=== PATIENT | female | born 1945 | race Caucasian/White ===

== ENCOUNTER 2016-07-06 06:49 | Day surgery (SDC) | payer MEDICARE ==
[2016-06-28 12:04] VITALS: BMI 44.9
[2016-07-06] MEDS ORDERED: SODIUM CHLORIDE 0.9% 1,000 ML IV SCH ×2 (07:14→08:00)
[2016-07-06] MEDS ORDERED: LACTATED RINGERS 1,000 ML IV SCH (07:14)
[2016-07-06] MEDS ORDERED: SODIUM CHLORIDE 0.9% 1,000 ML IV ONE (07:15)
[2016-07-06] MEDS ORDERED: IV FLUID CONTINUATION 1,000 ML IV ONE (07:25)
[2016-07-06] MEDS ORDERED: LIDOCAINE 1% INJ 10MG/ML (20 ML MDV) ONE (07:26)
[2016-07-06] MEDS ORDERED: PROPOFOL 10 MG/ML 20 ML VIAL IV ONE (07:26)
[2016-07-06] MEDS ORDERED: GLYCOPYRROLATE 0.2 MG/ML 2 ML VIAL ONE (07:26)
[2016-07-06 07:43] LABS: Anion Gap 11 mmol/L; Blood Urea Nitrogen 13 mg/dL (7-17); Calcium 9.5 mg/dL (8.4-10.2); Carbon Dioxide 27 mmol/L (22-30); Chloride 109 mmol/L (98-107); Glucose 88 mg/dL (74-99); INR 1.5 (<1.1); Non-African American GFR(MDRD) 51 (>60 ml/min/1.73 sqM); Potassium 3.9 mmol/L (3.5-5.1); Prothrombin Time 14.9 sec (9.0-12.0); Sodium 147 mmol/L (137-145)
[2016-07-06] MEDS ORDERED: ACETAMINOPHEN TAB 500 MG TAB PO PRN (07:54)
[2016-07-06 07:58] VITALS: TEMP 97.6
[2016-07-06 08:37] VITALS: RESP 16
[2016-07-06] MEDS ORDERED: ATORVASTATIN 80 MG TAB PO SCH (09:00)
[2016-07-06] MEDS ORDERED: POTASSIUM CHLORIDE ER 20 MEQ TAB.ER PO SCH (09:00)
[2016-07-06] MEDS ORDERED: NON-FORMULARY DRUG (Ranitidine Hcl [Zantac] 300 MG) PO SCH (09:00)
[2016-07-06] MEDS ORDERED: azaTHIOprine 50 MG TAB PO SCH (09:00)
[2016-07-06] MEDS ORDERED: FUROSEMIDE 40 MG TAB PO SCH (09:00)
[2016-07-06] MEDS ORDERED: METOPROLOL TARTRATE 50 MG TAB PO SCH (09:00)
[2016-07-06] MEDS ORDERED: AMIODARONE 200 MG TAB PO STA (09:14)
[2016-07-06 10:43] VITALS: BP 114/59; PULSE 86
--- NOTE | 2016-07-06 11:07 | ECHOT ---
DATE OF SERVICE: 07/06/2016 CLINICAL INFORMATION: Evaluation of left atrial appendage. PROCEDURE: After explaining the procedure to the patient as well as risks and complications, her blood pressure, heart rate, O2 saturation were monitored. The throat was sprayed with Cetacaine. She received sedation per anesthesia department. The probe was re-introduced in the esophagus without difficulty. Images were obtained. Following that, the probe was removed. FINDINGS: Biatrial enlargement was noted. The left atrial appendage is normal. Left ventricular size and systolic function are normal. The aortic valve, mitral valve and tricuspid valve are normal. Descending thoracic aorta appears to be normal. Contrast bubble study revealed no evidence of shunting across the interatrial septum with. No pericardial effusion was noted. DOPPLER: Pulse wave and color Doppler obtained and revealed mild mitral with moderate tricuspid regurgitation. There was no shunting across the interatrial septum. There was no evidence of significant pulmonary hypertension. CONCLUSION: 1. Biatrial enlargement with normal appearance of left atrial appendage. 2. Normal left ventricular size and systolic function. 3. Mild mitral with moderate tricuspid regurgitation. 4. No evidence of shunting across the interatrial septum. 5. Normal appearance of the descending thoracic aorta.
--- NOTE | 2016-07-06 15:34 | CE ---
DATE OF SERVICE: INDICATION: Atrial fibrillation. PROCEDURE: After explaining the procedure to the patient as well as risk and complications, blood pressure, heart rate and saturation were monitored. After receiving sedated state by the Anesthesia Department, transesophageal echocardiogram was performed. Following that, attempt cardioversion using 200 synchronized joules, 300 and 360 synchronized joules were unsuccessful in restoring normal sinus rhythm. There was no immediate complication.
[2016-07-06] MEDS ORDERED: AMIODARONE 200 MG TAB PO SCH (21:00)
[2016-07-06] MEDS ORDERED: WARFARIN 7.5 MG TAB PO SCH (21:00)
== END 2016-07-06 10:05 | disposition home or self-care (01) ==
LOC: CATHCVL 06:49
PROVIDERS: ATTEND Internal Medicine Interventional Cardiology
DX: I08.1 Rheumatic disorders of both mitral and tricuspid valves (principal); I10 Essential (primary) hypertension; E66.9 Obesity, unspecified; Z68.41 Body mass index [BMI] 40.0-44.9, adult; I48.1 Persistent atrial fibrillation; Z79.01 Long term (current) use of anticoagulants; Z79.899 Other long term (current) drug therapy; Z88.2 Allergy status to sulfonamides
CPT/HCPCS: 93312; 93320; 93325; 92960; 80048; 85610; J2001; J2704; 99152; 99153

== ENCOUNTER 2016-08-16 06:01 | Day surgery (SDC) | payer MEDICARE ==
[2016-08-13 15:26] VITALS: BMI 44.9
[~2016-08-16 06:01] MED LIST: LACTATED RINGERS 1,000 ML IV SCH; SODIUM CHLORIDE 0.9% 1,000 ML IV SCH
[2016-08-16 06:27] VITALS: TEMP 97.6
[2016-08-16] MEDS ORDERED: SODIUM CHLORIDE 0.9% 500 ML IV ONE (06:57)
[2016-08-16] MEDS ORDERED: LIDOCAINE 1% INJ 10MG/ML (20 ML MDV) ONE (07:07)
[2016-08-16] MEDS ORDERED: PROPOFOL 10 MG/ML 20 ML VIAL IV ONE (07:07)
[2016-08-16] MEDS ORDERED: ACETAMINOPHEN TAB 500 MG TAB PO PRN (07:20)
[2016-08-16] MEDS ORDERED: ROPIVACAINE 5 MG/ML 30 ML VIAL ONE (07:23)
[2016-08-16] MEDS ORDERED: LIDOCAINE 2%-EPI 1:100,000 20 ML VIAL ONE (07:23)
[2016-08-16] MEDS ORDERED: WARFARIN 7.5 MG TAB PO SCH (07:30)
[2016-08-16] MEDS ORDERED: SODIUM CHLORIDE 0.9% 1,000 ML IV SCH (07:30)
[2016-08-16 08:50] VITALS: BP 137/77; PULSE 78; RESP 20
[2016-08-16] MEDS ORDERED: POTASSIUM CHLORIDE ER 20 MEQ TAB.ER PO SCH (09:00)
[2016-08-16] MEDS ORDERED: NON-FORMULARY DRUG (Ranitidine Hcl [Zantac] 300 MG) PO SCH (09:00)
[2016-08-16] MEDS ORDERED: METOPROLOL TARTRATE 50 MG TAB PO SCH (09:00)
[2016-08-16] MEDS ORDERED: FUROSEMIDE 40 MG TAB PO SCH (09:00)
[2016-08-16] MEDS ORDERED: azaTHIOprine 50 MG TAB PO SCH (09:00)
--- NOTE | 2016-08-16 14:22 | CE ---
DATE OF SERVICE: PROCEDURE PERFORMED: Cardioversion INDICATION: Atrial fibrillation. PROCEDURE: After explaining the procedure to patient as well as risks and complications, her blood pressure, heart rate, O2 saturation were monitored. After obtaining sedation state per anesthesia department, synchronized biphasic 200 joules, 300 joules and 360 joules were performed with inability to restore normal sinus rhythm. There was no immediate complication.
[2016-08-17] MEDS ORDERED: WARFARIN 5 MG TAB PO SCH (07:20)
== END 2016-08-16 09:06 | disposition home or self-care (01) ==
LOC: CATHCVL 06:01
PROVIDERS: ATTEND Internal Medicine Interventional Cardiology
DX: I48.2 Chronic atrial fibrillation (principal); I10 Essential (primary) hypertension; E66.9 Obesity, unspecified; Z68.42 Body mass index [BMI] 45.0-49.9, adult; J45.909 Unspecified asthma, uncomplicated; Z88.2 Allergy status to sulfonamides; Z88.6 Allergy status to analgesic agent; Z79.01 Long term (current) use of anticoagulants; Z79.899 Other long term (current) drug therapy
CPT/HCPCS: 92960; 85610; J2001; J2795; J2704; 99152

== ENCOUNTER → 2016-09-24 | Outpatient (CLI) | payer MEDICARE ==
--- NOTE | 2016-09-24 16:33 | CT ---
EXAMINATION TYPE: CT abdomen w con DATE OF EXAM: 09/24/2016 4:11 PM COMPARISON: NONE HISTORY: Fall 17 days ago, left upper quadrant pain. CT DLP: 1395.00 mGycm CONTRAST: CT scan of the abdomen is performed with Oral Contrast and with IV Contrast, patient injected with 1 00 mL of Omnipaque 300. FINDINGS: LUNG BASES-: No visible nodule. No infiltrate. LIVER/GB: No calcified gallstones. No space occupying hepatic lesion. Biliary tree is of normal ca liber. PANCREAS: No inflammation. No distinct mass. SPLEEN: There is intraparenchymal splenic hematoma at its mid to lower pole which measures approximat mariah 8.2 cm in craniocaudal dimension by 7.3 cm in AP dimension. There is splenic laceration which is difficult to measure given the size of the hematoma. There is also subcapsular hematoma which measure s 5.9 x 2.7 cm. I do not see evidence for active hemorrhage. The splenic hilum is intact. Mild perisp lenic strandy attenuation. No hemoperitoneum identified within the imaged field of view. ADRENALS: No nodule. No thickening. KIDNEYS/BLADDER: No hydronephrosis. No nephrolithiasis. No disctinct renal mass. Urinary bladder g rossly unremarkable. BOWEL: Normal appendix. Normal bowel caliber. No inflammation. LYMPH NODES: No greater than 1cm abdominal or pelvic lymph nodes are appreciated. AORTA: No significant abnormality. OSSEOUS STRUCTURES: Severe degenerative change lumbar spine. Grade 1 anterolisthesis L4 and L5. OTHER: No significant additional abnormality is seen. IMPRESSION: 1. Grade 3 splenic laceration with intraparenchymal hematoma and laceration. Subcapsular hematoma not ed as well. No active hemorrhage identified within the [id number] at this time.
== END | disposition home or self-care (01) ==
LOC: RADCTMAIN 14:55
PROVIDERS: ATTEND Family Medicine
DX: S36.031A Moderate laceration of spleen, initial encounter (principal); D73.5 Infarction of spleen; T14.90 Injury, unspecified
CPT/HCPCS: 74160; Q9967

== ENCOUNTER 2021-04-06 17:25 | Observation (INO) | payer MEDICARE ==
[2021-04-06 18:37] LABS: Anisocytosis Slight; Basophils % (A) 0 %; Eosinophils # (A) 0.1 k/uL (0-0.7); Eosinophils % (A) 2 %; HGB 11.8 gm/dL (11.4-16.0); Lymphocytes % (A) 16 %; MCH 37.9 pg (25.0-35.0); MCV 118.6 fL (80.0-100.0); Macrocytosis Marked; Mean Platelet Volume 8.3; Monocytes # (A) 0.3 k/uL (0-1.0); Monocytes % (A) 5 %; Neutrophils % (A) 75 %; Platelet Count 187 k/uL (150-450); RBC 3.12 m/uL (3.80-5.40); WBC 6.6 k/uL (3.8-10.6)
[2021-04-06 18:49] LABS: Partial Thromboplastin Time 49.5 sec (22.0-30.0); Prothrombin Time 75.8 sec (9.0-12.0)
[2021-04-06 18:53] LABS: INR 7.8 (<1.2)
[2021-04-06 18:54] LABS: Albumin 2.9 g/dL (3.5-5.0); Calcium 8.9 mg/dL (8.4-10.2); Potassium 3.8 mmol/L (3.5-5.1); Total Bilirubin 2.7 mg/dL (0.2-1.3); Total Protein 7.7 g/dL (6.3-8.2)
--- NOTE | 2021-04-06 19:05 | ED ---
Recheck HPI - General Chief Complaint: Recheck/Abnormal Lab/Rx Stated Complaint: Abd labs Time Seen by Provider: 04/06/21 17:44 Source: patient Mode of arrival: ambulatory Limitations: no limitations - History of Present Illness Initial Comments: Vanessa is a 76-year-old female who presents to our hospital as a transfer from an outside hospital for evaluation of elevated INR. Patient has a history of autoimmune hepatitis. She is on Coumadin for atrial fibrillation. Patient's INR was elevated she was seen at outside hospital their lab was able to ca nnulate the INR was greater than 9. She was given with 2 doses of vitamin K and transferred here for further evaluation. Patient is not having any active bleeding. She does have some bleeding with bowel movements from hemorrhoids. She also has bleeding with brushing her teeth from gum disease. She does bruise easily. She is not having chest pain palpitations or lightheadedness. - Related Data Home Medications Medication Instructions Recorded Confirmed Furosemide [Lasix] 60 mg PO DAILY 12/14/13 04/06/21 Metoprolol Tartrate [Lopressor] 50 mg PO BID 12/14/13 04/06/21 Potassium Chloride [Klor-Con 20] 20 meq PO BID 12/14/13 04/06/21 azaTHIOprine [Imuran] 50 mg PO DAILY 12/14/13 04/06/21 Acetaminophen Tab [Tylenol] 1,000 mg PO BID 12/15/13 04/06/21 Warfarin [Coumadin] 5 mg PO SUTUWETHFRSA 08/13/16 04/06/21 Azithromycin [Zithromax Z-pack (6 See Taper PO DIRECTED 04/06/21 04/06/21 tabs)] Famotidine 20 mg PO DAILY 04/06/21 04/06/21 Warfarin [Coumadin] 7.5 mg PO MO 04/06/21 04/06/21 diphenhydrAMINE [Benadryl] 50 mg PO HS PRN 04/06/21 04/06/21 predniSONE 10 mg PO DAILY 04/06/21 04/06/21 Allergies Allergy/AdvReac Type Severity Reaction Status Date / Time adhesive Allergy Rash/Hives Verified 04/06/21 19:16 sulfamethoxazole Allergy Rash/Hives Verified 04/06/21 19:16 [From ] trimethoprim [From ] Allergy Rash/Hives Verified 04/06/21 19:16 aspirin AdvReac "too many Verified 04/06/21 19:16 causes a stomach ache." Review of Systems ROS Statement: Those systems with pertinent positive or pertinent negative responses have been documented in the HPI. ROS Other: All systems not noted in ROS Statement are negative. Past Medical History Past Medical History: Atrial Fibrillation, Asthma, GERD/Reflux, Hypertension, Liver Disease, Osteoarthritis (OA), Rheumatoid Arthritis (RA), Skin Disorder Additional Past Medical History / Comment(s): autoimmune hepatitis, hx migraines, diarrhea, hx gout, skin sores, urinary leakage History of Any Multi-Drug Resistant Organisms: None Reported Past Surgical History: Joint Replacement, Orthopedic Surgery Additional Past Surgical History / Comment(s): ovaries removed, rt hand ring finger knucke replacement, D&C Past Anesthesia/Blood Transfusion Reactions: Previous Problems w/ Anesthesia, Motion Sickness Additional Past Anesthesia/Blood Transfusion Reaction / Comment(s): trouble catch breath after "they took tube out" after an EGD Past Psychological History: Depression Smoking Status: Former smoker Past Alcohol Use History: Occasional Past Drug Use History: None Reported - Past Family History Mother Family Medical History: Coronary Artery Disease (CAD), Dementia, Myocardial Infarction ([place]) Additional Family Medical History / Comment(s): emphysema Father Additional Family Medical History / Comment(s): Alheimer's Brother(s) Family Medical History: Coronary Artery Disease (CAD), Myocardial Infarction ([place]) General Exam - General Exam Comments Initial Comments: Physical Exam GENERAL: Patient is well-developed and well-nourished. Patient is nontoxic and well-hydrated and is in no distress. HENT: Normocephalic, Atraumatic. EYES: PERRL, EOMI PULMONARY: Unlabored respirations. CARDIOVASCULAR: Irregularly irregular Warm and well perfused extremities ABDOMEN: Non-distended SKIN: Bruising on extremities : Deferred NEUROLOGIC: Alert and oriented Normal speech Normal gait MUSCULOSKELETAL: Moving all extremities with no apparent injury PSYCHIATRIC: No SI/HI Limitations: no limitations Course Vital Signs 04/06/21 17:40 Temperature 97.8 F Pulse Rate 80 Respiratory 18 Rate Blood Pressure 126/86 O2 Sat by Pulse 98 Oximetry Medical Decision Making - Medical Decision Making The patient was seen and evaluated history is obtained from the patient, repeat labs were obtained INR 7.8 however patient has transaminitis and an acute kidney injury. Given the multiple lab abnormalities and concern the patient's body will not be able to properly metabolize warfarin, I'm concerned she may have a persistently elevated INR and should be monitored closely here in the hospital. Patient care was discussed with Dr. Alcaraz who accepts admission - Lab Data Result diagrams: 04/06/21 18:25 04/06/21 18:25 Lab Results 04/06/21 04/06/21 04/06/21 Range/Units 18:25 18:25 18:25 WBC 6.6 (3.8-10.6) k/uL RBC 3.12 L (3.80-5.40) m/uL Hgb 11.8 (11.4-16.0) gm/dL Hct 37.0 (34.0-46.0) % MCV 118.6 H (80.0-100.0) fL MCH 37.9 H (25.0-35.0) pg MCHC 32.0 (31.0-37.0) g/dL RDW 18.0 H (11.5-15.5) % Plt Count 187 (150-450) k/uL MPV 8.3 Neutrophils % 75 % Lymphocytes % 16 % Monocytes % 5 % Eosinophils % 2 % Basophils % 0 % Neutrophils # 5.0 (1.3-7.7) k/uL Lymphocytes # 1.0 (1.0-4.8) k/uL Monocytes # 0.3 (0-1.0) k/uL Eosinophils # 0.1 (0-0.7) k/uL Basophils # 0.0 (0-0.2) k/uL Anisocytosis Slight Macrocytosis Marked A PT 75.8 H (9.0-12.0) sec INR 7.8 H* (<1.2) APTT 49.5 H (22.0-30.0) sec Sodium 139 (137-145) mmol/L Potassium 3.8 (3.5-5.1) mmol/L Chloride 110 H (98-107) mmol/L Carbon Dioxide 19 L (22-30) mmol/L Anion Gap 10 mmol/L BUN 19 H (7-17) mg/dL Creatinine 1.29 H (0.52-1.04) mg/dL Est GFR (CKD-EPI)AfAm 47 (>60 ml/min/1.73 sqM) Est GFR (CKD-EPI)NonAf 41 (>60 ml/min/1.73 sqM) Glucose 117 H (74-99) mg/dL Calcium 8.9 (8.4-10.2) mg/dL Total Bilirubin 2.7 H (0.2-1.3) mg/dL AST 245 H (14-36) U/L ALT 84 H (4-34) U/L Alkaline Phosphatase 250 H (38-126) U/L Total Protein 7.7 (6.3-8.2) g/dL Albumin 2.9 L (3.5-5.0) g/dL Disposition Clinical Impression: Warfarin-induced coagulopathy, Autoimmune hepatitis, YAMILKA (acute kidney injury) Disposition: ADMITTED IP TO THIS HOSP Condition: Stable Is patient prescribed a controlled substance at d/c from ED?: No Referrals: Sammy Ulrich MD [Primary Care Provider] - 1-2 days
[2021-04-06] MEDS ORDERED: NALOXONE 0.4 MG/ML 1 ML VIAL IV PRN (19:30)
[2021-04-06] MEDS ORDERED: diphenhydrAMINE 25 MG CAP PO PRN (23:49)
[2021-04-07] MEDS: ACETAMINOPHEN TAB 500 MG TAB PO SCH ×2 (00:06→08:57)
[2021-04-07] MEDS: POTASSIUM CHLORIDE ER 20 MEQ TAB.ER PO SCH ×2 (00:20→08:56)
[2021-04-07] MEDS: METOPROLOL TARTRATE 50 MG TAB PO SCH ×2 (00:20→08:56)
[2021-04-07 03:49] VITALS: PULSE 101
[2021-04-07 06:42] LABS: Anisocytosis Slight; Basophils % (A) 0 %; Eosinophils % (A) 1 %; HCT 32.1 % (34.0-46.0); HGB 10.3 gm/dL (11.4-16.0); Lymphocytes # (A) 0.3 k/uL (1.0-4.8); Lymphocytes % (A) 7 %; MCH 38.5 pg (25.0-35.0); MCV 120.3 fL (80.0-100.0); Macrocytosis Marked; Mean Platelet Volume 8.2; Monocytes # (A) 0.1 k/uL (0-1.0); Monocytes % (A) 4 %; Neutrophils # (A) 3.2 k/uL (1.3-7.7); Neutrophils % (A) 87 %; Platelet Count 126 k/uL (150-450); RBC 2.67 m/uL (3.80-5.40); RDW 17.7 % (11.5-15.5); WBC 3.6 k/uL (3.8-10.6)
[2021-04-07 07:33] LABS: Prothrombin Time 60.1 sec (9.0-12.0)
[2021-04-07 07:39] LABS: INR 6.2 (<1.2)
[2021-04-07] MEDS ORDERED: FUROSEMIDE 40 MG TAB PO SCH (09:00)
[2021-04-07] MEDS ORDERED: predniSONE 10 MG TAB PO SCH (09:00)
[2021-04-07] MEDS ORDERED: azaTHIOprine 50 MG TAB PO SCH (09:00)
[2021-04-07] MEDS ORDERED: FAMOTIDINE 20 MG TAB PO SCH (09:00)
[2021-04-07 09:04] LABS: African American GFR (CKD) 39 (>60 ml/min/1.73 sqM); Blood Urea Nitrogen 23 mg/dL (7-17); Calcium 8.7 mg/dL (8.4-10.2); Carbon Dioxide 22 mmol/L (22-30); Chloride 111 mmol/L (98-107); Glucose 148 mg/dL (74-99); Non-African American GFR(CKD) 34 (>60 ml/min/1.73 sqM); Potassium 4.8 mmol/L (3.5-5.1)
[2021-04-07 10:00] LABS: Anion Gap 5 mmol/L; Sodium 138 mmol/L (137-145)
[2021-04-07 11:23] VITALS: BP 113/64; RESP 18; TEMP 98.1
[2021-04-07 12:48] LABS: Albumin 2.6 g/dL (3.5-5.0); Bilirubin, Delta 1.7 mg/dL (0.0-0.2); Bilirubin,Unconjugated 0.8 mg/dL (0.0-1.1); Total Bilirubin 2.5 mg/dL (0.2-1.3)
--- NOTE | 2021-04-07 14:10 | P.HPIM ---
History of Present Illness H&P Date: 04/07/21 (This document was of both his H&P and discharge summary) 76 years old female patient of Dr. Ulrich with past medical history of chronic persistent atrial fibrillation, asthma, GERD, autoimmune hepatitis, hypertension, rheumatoid arthritis, history of gout comes in as a transfer from outside hospital for elevated INR. Patient takes Coumadin for atrial fibrillation. Apparently patient has been taking her Coumadin twice a day and has not seen her provider for more than a year. Last INR check was 8 months ago and was normal. Patient denies any change in her diet. She denies any nausea, hematemesis or melena. Sh denies any bleeding episode. Patient does have bleeding with brushing her teeth from gum disease. She does bruise easily. She was given 2 doses of vitamin K and transferred for further evaluation. Patient did have fecal occult cards that was negative. Vitals were reviewed patient is afebrile pulse 80 respiratory rate 18 blood pressure 126/86. Labs were reviewed patient has a WBC of 6.6 hemoglobin 11.8 which improved dropped to 10.3 this morning. MCV 118, INR yesterday evening was 7.8 improved to 6.2 this morning. CO2 19 improved to 22, liver enzymes elevated with AST to 45 ALT 84 alkaline phosphatase 250. Albumin 2.6. Coumadin was discontinued and patient was given instructions to start on 04/10 after repeat INR. ROS Constitutional: Denies chills, Denies fever, Denies lethargy, Denies malaise, Denies poor appetite, Denies weakness, Denies weight loss Eyes: denies decreased vision, denies diplopia, denies discharge, denies pain Ears: deny: decreased hearing Ears, nose, mouth and throat: Denies dental pain, Denies headache, Denies nasal discharge, Denies nose pain Cardiovascular: Denies chest pain, Denies decreased exercise tolerance, Denies edema, Denies high blood pressure, Denies irregular heart beat, Denies palpitations, Denies paroxysmal nocturnal dyspnea, Denies rapid heart beat, Denies shortness of breath Respiratory: Denies congestion, Denies cough, Denies cough with sputum, Denies dyspnea, Denies home oxygen, Denies wheezing Gastrointestinal: Denies abdominal pain, Denies change in bowel habits, Denies coffee ground emesis, Denies early satiety, Denies excessive gas, Denies heartburn, Denies hematemesis, Denies hematochezia, Denies loss of appetite, Denies nausea, Denies vomiting Genitourinary: Denies dysuria, Denies flank pain, Denies kidney stones, Denies menorrhagia, Denies urgency, Denies urinary frequency Musculoskeletal: Denies gait dysfunction, Denies limitation of motion, Denies morning stiffness, Denies muscle cramps Integumentary: Denies rash, Denies wounds, Denies brittle nails, Denies change in hair/nails, Denies darkening of skin bleeds easily Neurological: Denies balance difficulties, Denies change in speech, Denies double vision, Denies gait dysfunction, Denies loss of vision, Denies motor dis turbance, Denies numbness, Denies paralysis, Denies paresthesias, Denies seizures Psychiatric: Denies anxiety, Denies depression Endocrine: Denies excessive sweating, Denies excessive thirst, Denies high blood sugars, Denies palpitations Hematologic/Lymphatic: easy bruising, Denies lymphadenopathy bleeding from gums Social history Nonsmoker no alcohol use and marijuana use lives by herself Family history Mom at age of 86 from coronary artery disease Father at the age of 76 from dementia 2 brothers one passed from coronary artery disease at the age of 70 No sisters Has 1 son with no medical problems Physical exam - Constitutional General appearance: cooperative, no acute distress, obese - EENT Eyes: anicteric sclerae, PERRLA, normal appearance ENT: hearing grossly normal - Neck Neck: no lymphadenopathy, normal ROM, no other, no rigidity, no stridor, no thyromegaly - Respiratory Respiratory: bilateral: CTA, negative: diminished, dullness, rales, rhonchi - Cardiovascular Rhythm: Irregularly irregular Heart sounds: normal: S1, S2 Abnormal Heart Sounds: 3/5 systolic murmur - Gastrointestinal General gastrointestinal: normal bowel sounds, soft nontender - Integumentary Integumentary: no rash - Neurologic Neurologic: CNII-XII intact no sensory or motor deficit - Musculoskeletal Musculoskeletal: gait normal, strength equal bilaterally - Psychiatric Psychiatric: A&O x's 3, appropriate affect Assessment and plan #1 supratherapeutic INR with bleeding gums. Repeat INR improved from 9 to 6.2 hold Coumadin for 2 days with repeat INR on 04/10 #2 chronic persistent atrial fibrillation. Hold anticoagulation continue metoprolol 50 twice a day. #3 elevated transaminases with history of autoimmune hepatitis. Patient needs to follow-up with gastroenterology for evaluation of patient's hepatitis #4 rheumatoid arthritis continue Imuran. Prednisone 10 mg by mouth daily #5 macrocytic anemia. Patient denies any alcohol use. 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 Vision to follow as outpatient #6 CODE STATUS full code #7 disposition patient will be discharged today with follow-up with primary care physician and repeat labs in 3 days Past Medical History Past Medical History: Atrial Fibrillation, Asthma, GERD/Reflux, Hypertension, Liver Disease, Osteoarthritis (OA), Rheumatoid Arthritis (RA), Skin Disorder Additional Past Medical History / Comment(s): autoimmune hepatitis, hx migraines, diarrhea, hx gout, skin sores, urinary leakage History of Any Multi-Drug Resistant Organisms: None Reported Past Surgical History: Joint Replacement, Orthopedic Surgery Additional Past Surgical History / Comment(s): ovaries removed, rt hand ring finger knucke replacement, D&C Past Anesthesia/Blood Transfusion Reactions: Previous Problems w/ Anesthesia, Motion Sickness Additional Past Anesthesia/Blood Transfusion Reaction / Comment(s): trouble catch breath after "they took tube out" after an EGD Past Psychological History: Depression Smoking Status: Never smoker Past Alcohol Use History: Occasional Past Drug Use History: None Reported - Past Family History Mother Family Medical History: Coronary Artery Disease (CAD), Dementia, Myocardial Infarction ([place]) Additional Family Medical History / Comment(s): emphysema Father Additional Family Medical History / Comment(s): Alheimer's Brother(s) Family Medical History: Coronary Artery Disease (CAD), Myocardial Infarction ([place]) Medications and Allergies Home Medications Medication Instructions Recorded Confirmed Type Furosemide [Lasix] 60 mg PO DAILY 12/14/13 04/06/21 History Metoprolol Tartrate [Lopressor] 50 mg PO BID 12/14/13 04/06/21 History Potassium Chloride [Klor-Con 20] 20 meq PO BID 12/14/13 04/06/21 History azaTHIOprine [Imuran] 50 mg PO DAILY 12/14/13 04/06/21 History Acetaminophen Tab [Tylenol] 1,000 mg PO BID 12/15/13 04/06/21 History diphenhydrAMINE [Benadryl] 50 mg PO HS PRN 04/06/21 04/06/21 History predniSONE 10 mg PO DAILY 04/06/21 04/06/21 History Pantoprazole [Protonix] 40 mg PO DAILY #30 tab 04/07/21 Rx Warfarin [Coumadin] 5 mg PO SUTUWETHFRSA #0 04/07/21 04/06/21 Rx Warfarin [Coumadin] 7.5 mg PO MO #0 04/07/21 04/06/21 Rx Allergies Allergy/AdvReac Type Severity Reaction Status Date / Time adhesive Allergy Rash/Hives Verified 04/06/21 19:16 latex Allergy Rash/Hives Verified 04/06/21 23:18 sulfamethoxazole Allergy Rash/Hives Verified 04/06/21 19:16 [From ] trimethoprim [From ] Allergy Rash/Hives Verified 04/06/21 19:16 aspirin AdvReac "too many Verified 04/06/21 19:16 causes a stomach ache." Physical Exam Vitals: Vital Signs Temp Pulse Pulse Pulse Resp BP BP 04/07/21 08:00 98.1 F 101 H 82 18 113/64 04/07/21 03:48 98 F 101 H 16 116/76 04/06/21 23:59 102 H 04/06/21 23:06 97.7 F 103 H 20 153/83 04/06/21 22:00 74 18 120/71 04/06/21 20:00 78 18 122/83 04/06/21 17:40 97.8 F 80 18 126/86 Pulse Ox 04/07/21 08:00 97 04/07/21 03:48 98 04/06/21 23:59 04/06/21 23:06 96 04/06/21 22:00 95 04/06/21 20:00 95 04/06/21 17:40 98 Intake and Output 04/06/21 04/07/21 04/07/21 22:59 06:59 14:59 Intake Total 240 Output Total 200 Balance -200 240 Intake: Oral 240 Output: Urine 200 Other: Voiding Method Toilet Toilet Weight 107.048 kg 107.1 kg Results CBC & Chem 7: 04/07/21 06:28 04/07/21 06:28 Labs: Abnormal Lab Results - Last 24 Hours (Table) 04/06/21 04/06/21 04/06/21 Range/Units 18:25 18:25 18:25 WBC (3.8-10.6) k/uL RBC 3.12 L (3.80-5.40) m/uL Hgb (11.4-16.0) gm/dL Hct (34.0-46.0) % MCV 118.6 H (80.0-100.0) fL MCH 37.9 H (25.0-35.0) pg RDW 18.0 H (11.5-15.5) % Plt Count (150-450) k/uL Lymphocytes # (1.0-4.8) k/uL Macrocytosis Marked A PT 75.8 H (9.0-12.0) sec INR 7.8 H* (<1.2) APTT 49.5 H (22.0-30.0) sec Chloride 110 H (98-107) mmol/L Carbon Dioxide 19 L (22-30) mmol/L BUN 19 H (7-17) mg/dL Creatinine 1.29 H (0.52-1.04) mg/dL Glucose 117 H (74-99) mg/dL Total Bilirubin 2.7 H (0.2-1.3) mg/dL Delta Bilirubin (0.0-0.2) mg/dL AST 245 H (14-36) U/L ALT 84 H (4-34) U/L Alkaline Phosphatase 250 H (38-126) U/L Albumin 2.9 L (3.5-5.0) g/dL 04/07/21 04/07/21 04/07/21 Range/Units 06:28 06:28 06:28 WBC 3.6 L (3.8-10.6) k/uL RBC 2.67 L (3.80-5.40) m/uL Hgb 10.3 L (11.4-16.0) gm/dL Hct 32.1 L (34.0-46.0) % MCV 120.3 H (80.0-100.0) fL MCH 38.5 H (25.0-35.0) pg RDW 17.7 H (11.5-15.5) % Plt Count 126 L (150-450) k/uL Lymphocytes # 0.3 L (1.0-4.8) k/uL Macrocytosis Marked A PT 60.1 H (9.0-12.0) sec INR 6.2 H* (<1.2) APTT (22.0-30.0) sec Chloride 111 H (98-107) mmol/L Carbon Dioxide (22-30) mmol/L BUN 23 H (7-17) mg/dL Creatinine 1.50 H (0.52-1.04) mg/dL Glucose 148 H (74-99) mg/dL Total Bilirubin (0.2-1.3) mg/dL Delta Bilirubin (0.0-0.2) mg/dL AST (14-36) U/L ALT (4-34) U/L Alkaline Phosphatase (38-126) U/L Albumin (3.5-5.0) g/dL 04/07/21 Range/Units 06:28 WBC (3.8-10.6) k/uL RBC (3.80-5.40) m/uL Hgb (11.4-16.0) gm/dL Hct (34.0-46.0) % MCV (80.0-100.0) fL MCH (25.0-35.0) pg RDW (11.5-15.5) % Plt Count (150-450) k/uL Lymphocytes # (1.0-4.8) k/uL Macrocytosis PT (9.0-12.0) sec INR (<1.2) APTT (22.0-30.0) sec Chloride (98-107) mmol/L Carbon Dioxide (22-30) mmol/L BUN (7-17) mg/dL Creatinine (0.52-1.04) mg/dL Glucose (74-99) mg/dL Total Bilirubin 2.5 H (0.2-1.3) mg/dL Delta Bilirubin 1.7 H (0.0-0.2) mg/dL AST 237 H (14-36) U/L ALT 98 H (4-34) U/L Alkaline Phosphatase 250 H (38-126) U/L Albumin 2.6 L (3.5-5.0) g/dL
== END 2021-04-07 15:51 | disposition home or self-care (01) ==
LOC: EC 17:25 → 6NMEDSUR 19:32 → 3SCARD 22:17
PROVIDERS: ADMIT Internal Medicine; ATTEND Internal Medicine
DX: D68.32 Hemorrhagic disorder due to extrinsic circulating anticoagulants (principal); T45.515A Adverse effect of anticoagulants, initial encounter; N17.9 Acute kidney failure, unspecified; K75.4 Autoimmune hepatitis; Z20.822 Contact with and (suspected) exposure to COVID-19; I48.19 Other persistent atrial fibrillation; D53.9 Nutritional anemia, unspecified; I10 Essential (primary) hypertension; K21.9 Gastro-esophageal reflux disease without esophagitis; R74.8 Abnormal levels of other serum enzymes; M19.90 Unspecified osteoarthritis, unspecified site; M06.9 Rheumatoid arthritis, unspecified; M10.9 Gout, unspecified; J45.909 Unspecified asthma, uncomplicated; K64.9 Unspecified hemorrhoids; K76.9 Liver disease, unspecified; F32.9 Major depressive disorder, single episode, unspecified; L98.9 Disorder of the skin and subcutaneous tissue, unspecified; Z79.01 Long term (current) use of anticoagulants; Z79.899 Other long term (current) drug therapy; Z91.048 Other nonmedicinal substance allergy status; Z88.1 Allergy status to other antibiotic agents; Z88.6 Allergy status to analgesic agent; Z88.2 Allergy status to sulfonamides; Z87.891 Personal history of nicotine dependence; Z86.69 Personal history of other diseases of the nervous system and sense organs; Z82.49 Family history of ischemic heart disease and other diseases of the circulatory system; Z82.5 Family history of asthma and other chronic lower respiratory diseases
CPT/HCPCS: 99284; 36415; 80053; 80048; 80076; 85025 ×2; 85610 ×2; 85730; 87635; G0378 ×2; J7500

== ENCOUNTER 2021-04-07 17:31 | Emergency (ER) | payer MEDICARE ==
--- NOTE | 2021-04-07 21:32 | CT ---
EXAMINATION TYPE: CT brain [facility] DATE OF EXAM: 04/07/2021 COMPARISON: None HISTORY: Fall, right posterior head injury. On blood thinners. CT DLP: 1361.3 mGycm Automated exposure control for dose reduction was used. TECHNIQUE: CT scan of the head and cervical spine are performed without contrast. FINDINGS: There is no acute intracranial hemorrhage, mass effect, or midline shift identified. The ventricles and sulci are within normal limits in size. The globes are intact and the visualized sin uses are clear. Small occipital scalp hematoma. No calvarial fracture. Hyperostosis interna frontalis . Cervical spine is visualized in its entirety from C1 through upper thoracic levels and demonstrates r eversal of the cervical lordosis without evidence of acute fracture or dislocation. Prevertebral sof t tissue appears within normal limits. The C1-C2 articulation is unremarkable. IMPRESSION: 1. There is no acute fracture or dislocation evident in the cervical spine. 2. Small scalp hematoma without an acute intracranial process.
--- NOTE | 2021-04-07 22:45 | ED ---
Head Injury HPI - General Chief complaint: Head Injury Stated complaint: fall/head injury/high INR Time Seen by Provider: 04/07/21 22:35 Source: patient Mode of arrival: ambulatory Limitations: no limitations - History of Present Illness Initial comments: 76-year-old female patient presented to the emergency department today for evaluation after sustaining a head injury. Patient was at the hospital for lab draw for recently elevated INR. When she went back out to the car her legs gave out and she fell backwards hitting her head on the concrete. She denies any loss of consciousness. She reports pain locally to the area of impact. Denies any significant headache. Denies blurred vision, double vision, nausea, vomiting. Denies numbness, tingling, or weakness to the extremities. Denies any neck or back pain. Denies any other injuries. States her INR was 6.2 today. She did receive injections of vitamin K yesterday. - Related Data Home Medications Medication Instructions Recorded Confirmed Furosemide [Lasix] 60 mg PO DAILY 12/14/13 04/06/21 Metoprolol Tartrate [Lopressor] 50 mg PO BID 12/14/13 04/06/21 Potassium Chloride [Klor-Con 20] 20 meq PO BID 12/14/13 04/06/21 azaTHIOprine [Imuran] 50 mg PO DAILY 12/14/13 04/06/21 Acetaminophen Tab [Tylenol] 1,000 mg PO BID 12/15/13 04/06/21 diphenhydrAMINE [Benadryl] 50 mg PO HS PRN 04/06/21 04/06/21 predniSONE 10 mg PO DAILY 04/06/21 04/06/21 Previous Rx's Medication Instructions Recorded Pantoprazole [Protonix] 40 mg PO DAILY #30 tab 04/07/21 Warfarin [Coumadin] 5 mg PO SUTUWETHFRSA #0 04/07/21 Warfarin [Coumadin] 7.5 mg PO MO #0 04/07/21 Allergies/Adverse reactions: Allergies Allergy/AdvReac Type Severity Reaction Status Date / Time adhesive Allergy Rash/Hives Verified 04/07/21 18:50 latex Allergy Rash/Hives Verified 04/07/21 18:50 sulfamethoxazole Allergy Rash/Hives Verified 04/07/21 18:50 [From ] trimethoprim [From ] Allergy Rash/Hives Verified 04/07/21 18:50 aspirin AdvReac "too many Verified 04/07/21 18:50 causes a stomach ache." Review of Systems ROS Statement: Those systems with pertinent positive or pertinent negative responses have been documented in the HPI. ROS Other: All systems not noted in ROS Statement are negative. Past Medical History Past Medical History: Atrial Fibrillation, Asthma, GERD/Reflux, Hypertension, Liver Disease, Osteoarthritis (OA), Rheumatoid Arthritis (RA), Skin Disorder Additional Past Medical History / Comment(s): autoimmune hepatitis, hx migraines, diarrhea, hx gout, skin sores, urinary leakage History of Any Multi-Drug Resistant Organisms: None Reported Past Surgical History: Joint Replacement, Orthopedic Surgery Additional Past Surgical History / Comment(s): ovaries removed, rt hand ring finger knucke replacement, D&C Past Anesthesia/Blood Transfusion Reactions: Previous Problems w/ Anesthesia, Motion Sickness Additional Past Anesthesia/Blood Transfusion Reaction / Comment(s): trouble ca tch breath after "they took tube out" after an EGD Past Psychological History: Depression Smoking Status: Never smoker Past Alcohol Use History: Occasional Past Drug Use History: None Reported - Past Family History Mother Family Medical History: Coronary Artery Disease (CAD), Dementia, Myocardial Infarction ([place]) Additional Family Medical History / Comment(s): emphysema Father Additional Family Medical History / Comment(s): Alheimer's Brother(s) Family Medical History: Coronary Artery Disease (CAD), Myocardial Infarction ([place]) General Exam Limitations: no limitations General appearance: alert, in no apparent distress, other (This is a well- developed, well-nourished elderly female patient in no acute distress. Vital signs upon presentation temperature 98.8F, pulse 85, respirations 20, blood pressure 146/84, pulse ox 98% on room air.) Head exam: Present: other (There is small hematoma noted to the occipital scalp) Eye exam: Present: normal appearance, PERRL, EOMI. Absent: scleral icterus, conjunctival injection, nystagmus, periorbital swelling ENT exam: Present: normal exam, normal oropharynx, mucous membranes moist Neck exam: Present: normal inspection, full ROM, other (Nontender, no step-off, no deformity to firm midline palpation of the posterior cervical spine. Full range of motion without pain or limitation.). Absent: tenderness, meningismus, lymphadenopathy Respiratory exam: Present: normal lung sounds bilaterally. Absent: respiratory distress, wheezes, rales, rhonchi, stridor Cardiovascular Exam: Present: regular rate, normal rhythm, normal heart sounds. Absent: systolic murmur, diastolic murmur, rubs, gallop, clicks GI/Abdominal exam: Present: soft, normal bowel sounds. Absent: distended, tenderness, guarding, rebound, rigid Back exam: Present: normal inspection, other (Nontender, no step-off, no deformity to firm midline palpation of the thoracic and lumbar vertebrae. Full range of motion without pain or limitation.). Absent: vertebral tenderness Neurological exam: Present: alert, oriented X3, CN II-XII intact Psychiatric exam: Present: normal affect, normal mood Skin exam: Present: warm, dry, intact, normal color. Absent: rash Course Vital Signs 04/07/21 04/07/21 18:47 22:53 Temperature 98.8 F 98 F Pulse Rate 85 78 Respiratory 20 18 Rate Blood Pressure 146/84 144/84 O2 Sat by Pulse 98 97 Oximetry Medical Decision Making - Medical Decision Making 76-year-old female patient presents to the emergency department today for evaluation after sustaining head injury. INR outpatient was 6.2. CT brain C- spine was negative. Patient has no significant headache and is neurologically intact with no focal deficits. She'll be discharged home to follow-up with the primary care physician for recheck on Saturday. Return parameters were discussed in detail. She verbalizes understanding and agrees with this plan. Case discussed with my attending Dr. Mckeon. - Radiology Data Radiology results: report reviewed, image reviewed Computed tomography scan of the head and cervical spine are performed without contrast. Report was reviewed in its entirety. Impression by Dr. Mcdonough shows no acute fracture dislocation the cervical spine. Small scalp hematoma with out and acute intracranial process. Disposition Clinical Impression: Scalp hematoma Disposition: HOME SELF-CARE Condition: Good Instructions (If sedation given, give patient instructions): Head Injury (ED), Elevated INR (ED), Hematoma (ED) Additional Instructions: Follow-up with your primary care physician as needed. Return immediately for any new, worsening, or concerning symptoms. Is patient prescribed a controlled substance at d/c from ED?: No Referrals: Sammy Ulrich MD [Primary Care Provider] - 1-2 days Time of Disposition: 22:45
[2021-04-07 22:54] VITALS: BP 144/84; PULSE 78; RESP 18; TEMP 98
== END 2021-04-07 22:54 | disposition home or self-care (01) ==
LOC: EC 17:31
DX: S00.03XA Contusion of scalp, initial encounter (principal); I10 Essential (primary) hypertension; I48.91 Unspecified atrial fibrillation; J45.909 Unspecified asthma, uncomplicated; Z88.1 Allergy status to other antibiotic agents; Z88.2 Allergy status to sulfonamides; Z88.6 Allergy status to analgesic agent; Z91.040 Latex allergy status; Z91.09 Other allergy status, other than to drugs and biological substances; Z79.899 Other long term (current) drug therapy; W01.198A Fall on same level from slipping, tripping and stumbling with subsequent striking against other object, initial encounter; Y92.009 Unspecified place in unspecified non-institutional (private) residence as the place of occurrence of the external cause
CPT/HCPCS: 70450; 72125; 99283

== ENCOUNTER → 2021-04-10 | Outpatient (CLI) | payer MEDICARE ==
[2021-04-10 19:21] LABS: INR 1.63 (0.90-1.11); Prothrombin Time 17.2 sec (9.9-11.9)
[2021-04-10 19:54] LABS: HCT 32.7 % (37.2-46.3); MCH 38.9 pg (27.0-32.0); MCHC 33.6 g/dL (32.0-37.0); MCV 115.5 fL (80.0-97.0); Mean Platelet Volume 10.8 fL (9.5-12.2); Platelet Count 130 X 10*3/uL (140-440); RBC 2.83 X 10*6/uL (4.10-5.20); RDW 18.8 % (11.5-14.5); WBC 6.19 X 10*3/uL (4.50-10.00)
[2021-04-10 20:37] LABS: Basophils # (A) 0.01 X 10*3/uL (0.00-0.10); Basophils % (A) 0.2 %; Eosinophils # (A) 0.04 X 10*3/uL (0.04-0.35); Eosinophils % (A) 0.6 %; Lymphocytes # (A) 0.73 X 10*3/uL (0.90-5.00); Lymphocytes % (A) 11.8 %; Macrocytosis (M) 2+; Monocytes # (A) 0.62 X 10*3/uL (0.20-1.00); Neutrophils # (A) 4.76 X 10*3/uL (1.80-7.70); Neutrophils % (A) 76.9 %
== END | disposition home or self-care (01) ==
LOC: LABWHC1 11:18
PROVIDERS: ATTEND Nurse Practitioner Family
DX: D68.59 Other primary thrombophilia (principal)
CPT/HCPCS: 36415; 85025; 85610

== ENCOUNTER → 2021-06-06 | Outpatient (CLI) | payer MEDICARE ==
--- NOTE | 2021-06-06 20:45 | CT ---
EXAMINATION TYPE: CT ChestAbdPelvis wo con DATE OF EXAM: 06/06/2021 COMPARISON: CT 09/24/2016 HISTORY: Monoclonal gammopathy CT DLP: 1438.70 mGycm. Automated Exposure Control for Dose Reduction was Utilized. TECHNIQUE: CT scan of the thorax, abdomen and pelvis is performed without IV contrast. Patient received oral con trast only. FINDINGS: Lack of intravenous contrast could compromise sensitivity of the exam. There are anasarca c hanges present in the abdominal fat. LUNGS: Multiple subcentimeter pulmonary nodules are present bilaterally, too numerous to count, large st nodule measuring only 6 mm in the right lower lobe medially on axial image 46. There is no pleural effusion or pneumothorax seen. The tracheobronchial tree is patent. MEDIASTINUM: There are no greater than 1 cm hilar or mediastinal lymph nodes. No pericardial effusi on is seen. Prominence of pulmonary artery could be indicative of pulmonary artery hypertension OTHER: Ascending aorta is aneurysmal at 4.4 cm. LIVER/GB: Multiple low dense foci are scattered within the liver, largest within the inferior right l obe measuring 6.3 cm, lesions have developed in the interval, there is a nodular contour to the liver which may be indicative of underlying cirrhosis. Dependent high attenuation within the gallbladder i s consistent with stones.. PANCREAS: No significant abnormality is seen. SPLEEN: The spleen has decreased in size, the area of possible splenic hematoma has resolved. ADRENALS: Left adrenal mass has developed in the interval and measures 2.9 cm, right adrenal gland is stable. KIDNEYS: No significant abnormality is seen. BOWEL: No significant abnormality is seen. GENITAL ORGANS: No gross abnormality seen. LYMPH NODES: Retroperitoneal node at the level of the aortic bifurcation, axial image 77 is suspected , there may be additional nodes at this level which are enlarged, these appear to be dense on prior e xam however. OSSEOUS STRUCTURES: No significant abnormality is seen. OTHER: There is been interval development of ascites.. IMPRESSION: Findings consistent with metastatic disease likely to the lungs and liver, cirrhosis, asc ites, retroperitoneal adenopathy is questioned, there is left adrenal mass. Noncontrast exam. Aortic aneurysm
== END | disposition home or self-care (01) ==
LOC: RADCTMAIN 15:55
PROVIDERS: ATTEND Internal Medicine Hematology & Oncology
DX: Z03.89 Encounter for observation for other suspected diseases and conditions ruled out (principal); D47.2 Monoclonal gammopathy; M10.9 Gout, unspecified; K21.9 Gastro-esophageal reflux disease without esophagitis; M15.0 Primary generalized (osteo)arthritis; R16.0 Hepatomegaly, not elsewhere classified
CPT/HCPCS: 36415; 71250; 74176; 82565; 84520